=== PATIENT | female | born 1955 | race Caucasian/White ===

== ENCOUNTER 2021-09-05 10:59 | Inpatient (IN) ==
[2021-09-05] MEDS ORDERED: Lactated Ringers 1000 ml BAG IV.FLUID IV ONE (11:23)
[2021-09-05 11:55] LABS: ABS Basophils 0.1 10^3/ul (0-0.2); ABS Lymphocytes 1.2 10^3/ul (1.0-4.8); ABS Monocytes 0.8 10^3/ul (0-0.8); ABS Neutrophils 5.7 10^3/ul (1.5-7.7); Eosinophil % 0.5 %; Hematocrit 41 % (35-47); Hemoglobin 13.4 g/dL (12.0-16.0); Lymphocyte % 15.5 %; Mean Corpuscular HGB Conc 33 g/dL (31-36); Mean Corpuscular Hemoglobin 27 pg (27-31); Mean Corpuscular Volume 81 fL (80-97); Mean Platelet Volume 9.8 fL (7.4-10.4); Platelet Count 172 10^3/uL (150-450); Red Blood Count 5.04 10^6 /uL (3.70-4.87); Red Cell Distribution Width 16 % (10-15); White Blood Count 7.8 10^3/uL (3.5-10.8)
[2021-09-05 12:08] LABS: Activated Partial Thrombo Time 30.5 seconds (26.0-38.0); INR 1.13 (0.86-1.15)
[2021-09-05 12:15] LABS: Albumin 4.2 g/dL (3.2-5.2); Albumin/Globulin Ratio 1.4 (1-3); C Reactive Protein 12.53 mg/L (<8.01); Calcium 8.7 mg/dL (8.6-10.3); Globulin 2.9 g/dL (2-4); Potassium 4.2 mmol/L (3.5-5.0); Total Bilirubin 0.3 mg/dL (0.2-1.0); Total Protein 7.1 g/dL (6.4-8.9); eGFR CKD-EPI 99.8 (>60)
[2021-09-05 13:13] LABS: High Sensitivity Troponin 1 Hr 6 pg/mL (<15)
[2021-09-05 13:31] LABS: Erythrocyte Sed Rate 34 mm/Hr (0-29)
[2021-09-05] MEDS ORDERED: HYDROcodone/ACETAMIN 5/325 mg TAB PO ONE ×2 (13:49→18:43)
[2021-09-05 13:53] LABS: Urine Appearance Cloudy; Urine Bilirubin Negative (Negative); Urine Blood Negative (Negative); Urine Color Yellow; Urine Glucose Negative (Negative); Urine Ketones Negative (Negative); Urine Nitrite Negative (Negative); Urine Protein Negative (Negative); Urine Specific Gravity 1.012 (1.002-1.030); Urine Urobilinogen Negative (Negative)
[2021-09-05] MEDS ORDERED: Albuterol HFA INHALER 8 gm MDI INH PRN (19:49)
[2021-09-05] MEDS ORDERED: Clotrimazole 1% CREAM 45 GM TOPICAL SCH (21:00)
[2021-09-05] MEDS ORDERED: Vancomycin per Pharmacy 1 EA NOTE FOLLOW UP SCH (23:00)
[2021-09-05] MEDS ORDERED: Vancomycin 1,500 MG in NS 0.9% 250 ml 250 ML IVPB ONE (23:00)
[2021-09-05] MEDS: Enoxaparin 40 MG/0.4 ML SYR SUBCUT SCH (23:32)
[2021-09-05] MEDS: HYDROcodone/ACETAMIN 5/325 mg TAB PO PRN (23:54)
[2021-09-05] MEDS: Nystatin TOP POWDER 15 GM BTL TOPICAL SCH (23:58)
[2021-09-06 06:47] LABS: ABS Lymphocytes 0.8 10^3/ul (1.0-4.8); ABS Monocytes 0.6 10^3/ul (0-0.8); ABS Neutrophils 3.9 10^3/ul (1.5-7.7); Eosinophil % 0.1 %; Hematocrit 39 % (35-47); Lymphocyte % 15.7 %; Mean Corpuscular HGB Conc 33 g/dL (31-36); Mean Corpuscular Hemoglobin 27 pg (27-31); Mean Corpuscular Volume 81 fL (80-97); Mean Platelet Volume 9.8 fL (7.4-10.4); Platelet Count 164 10^3/uL (150-450); Red Blood Count 4.81 10^6 /uL (3.70-4.87); Red Cell Distribution Width 16 % (10-15); White Blood Count 5.4 10^3/uL (3.5-10.8)
[2021-09-06 07:23] LABS: C Reactive Protein 63.45 mg/L (<8.01); Calcium 8.9 mg/dL (8.6-10.3); eGFR CKD-EPI 96.6 (>60)
[2021-09-06] MEDS: HYDROcodone/ACETAMIN 5/325 mg TAB PO PRN (08:07)
[2021-09-06 09:36] LABS: Body Fluid Source Synovial Fluid
[2021-09-06 09:37] LABS: Body Fluid Appearance Cloudy; Body Fluid Color Yellow
[2021-09-06] MEDS: Aspirin EC 81 mg TAB.EC (enteric coated) PO SCH (09:56)
[2021-09-06] MEDS: Nystatin TOP POWDER 15 GM BTL TOPICAL SCH ×3 (10:01→20:16)
[2021-09-06] MEDS: Vancomycin 1,500 MG in NS 0.9% 250 ml 250 ML IVPB SCH ×2 (10:02→20:16)
[2021-09-06 10:36] LABS: Body Fluid WBC 24759 /mcL
[2021-09-06 11:13] LABS: Body Fluid Mono 14 %; Body Fluid Total Cells Counted 200
[2021-09-06] MEDS: Enoxaparin 40 MG/0.4 ML SYR SUBCUT SCH (20:07)
[2021-09-07 05:47] LABS: ABS Basophils 0.1 10^3/ul (0-0.2); ABS Eosinophils 0.2 10^3/ul (0-0.6); ABS Monocytes 0.6 10^3/ul (0-0.8); Hematocrit 38 % (35-47); Hemoglobin 12.2 g/dL (12.0-16.0); Lymphocyte % 34.4 %; Mean Corpuscular HGB Conc 32 g/dL (31-36); Mean Corpuscular Hemoglobin 26 pg (27-31); Mean Corpuscular Volume 82 fL (80-97); Mean Platelet Volume 9.8 fL (7.4-10.4); Platelet Count 157 10^3/uL (150-450); Red Blood Count 4.62 10^6 /uL (3.70-4.87); Red Cell Distribution Width 15 % (10-15); White Blood Count 5.8 10^3/uL (3.5-10.8)
[2021-09-07 06:04] LABS: Calcium 8.4 mg/dL (8.6-10.3); Potassium 3.7 mmol/L (3.5-5.0); eGFR CKD-EPI 99.3 (>60)
[2021-09-07] MEDS: Nystatin TOP POWDER 15 GM BTL TOPICAL SCH (07:55)
[2021-09-07] MEDS: Aspirin EC 81 mg TAB.EC (enteric coated) PO SCH (07:56)
[2021-09-07 07:59] VITALS: BP 150/100
[2021-09-07] MEDS ORDERED: Vancomycin Trough Check NOTE FOLLOW UP ONE (08:30)
[2021-09-11 15:07] LABS: B. garinii/B. afzellii PCR Negative (Negative)
== END 2021-09-07 11:05 | disposition left against medical advice (07) | DRG 549 ==
LOC: ED 10:59 → EDHOLD 19:34 → SUATTDRO 19:34 → MED 22:24
PROVIDERS: ADMIT Hospitalist; ATTEND Internal Medicine